=== PATIENT | female | born 1995 | race Caucasian/White ===

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

== ENCOUNTER 2017-02-13 20:11 | Emergency (ER) | payer OTHER ==
[~2017-02-13] VITALS: Ht 167.6 cm; Wt 76.8 kg
[2017-02-13 20:46] VITALS: Ht 167.6 cm; Wt 76.8 kg
== END 2017-02-13 23:21 | disposition left against medical advice (07) ==
LOC: FTE 20:11
DX: Z53.21 Procedure and treatment not carried out due to patient leaving prior to being seen by health care provider (principal)

== ENCOUNTER → 2017-02-13 | Emergency (ER) | payer OTHER ==
[~2017-02-13] VITALS: Wt 78.0 kg
[~2017-02-13] MED LIST: CEPH-443 PO; DOCU-144 PO; POLY17PO6 PO
== END | disposition left against medical advice (07) ==
LOC: FTE 13:39
DX: Z53.21 Procedure and treatment not carried out due to patient leaving prior to being seen by health care provider (principal)